=== PATIENT | male | born 1950 | race Caucasian/White ===

== ENCOUNTER 2021-07-22 16:47 | Emergency (ER) | payer MEDICARE ==
[2021-07-22 17:13] LABS: #Basophils 0.1 thou/uL (0.0-0.2); #Lymphocytes 0.4 thou/uL (1.20-3.40); #Monocytes 0.8 thou/uL (0.11-0.59); #Neutrophils 12.9 thou/uL (1.40-6.50); %Basophils 0.6 % (0.0-1.0); %Eosinophils 0.1 % (0.0-10.0); %Lymphocytes 3.1 % (21.0-51.0); %Monocytes 5.4 % (0.0-10.0); %Neutrophils 90.8 % (42.0-75.0); Hemoglobin 14.9 g/dL (14.0-18.0); Mean Corpuscular HGB CONC 30.8 g/dL (32.0-36.0); Mean Corpuscular Hemoglobin 29.1 pg (27.0-31.0); Mean Corpuscular Volume 94.6 fL (78.0-98.0); Mean Platelet Volume 5.9 fL (7.4-10.4); Platelet Count 393 thou/uL (130-400); RBC Distribution Width 13.2 % (11.5-14.5); Red Blood Cell (RBC) Count 5.11 mill/uL (4.70-6.10); White Blood Cell (WBC) Count 14.2 thou/uL (4.8-10.8)
[2021-07-22 17:31] LABS: ALT (SGPT) 26 U/L (8-55); AST (SGOT) 58 U/L (5-34); Albumin 4.5 g/dL (3.4-4.8); Alkaline Phosphatase 75 U/L (40-110); Anion Gap 23 mmol/L (10-20); BUN (Urea Nitrogen) 30 mg/dL (8.4-25.7); Bilirubin, Total 0.5 mg/dL (0.2-1.2); Calc. Creatinine Clearance 0 mL/min (70-130); Calcium 9.6 mg/dL (7.8-10.44); Carbon Dioxide 22 mmol/L (23-31); Chloride 104 mmol/L (98-107); Globulin 2.8 g/dL (2.4-3.5); Glucose 83 mg/dL (83-110); Potassium 5.3 mmol/L (3.5-5.1); Protein, Total 7.3 g/dL (5.8-8.1); Sodium 144 mmol/L (136-145)
[2021-07-22] MEDS ORDERED: Aspirin Chewable 81 MG TAB ONE (17:48)
[2021-07-22 18:00] LABS: CKMB 21.4 ng/mL (0-6.6)
[2021-07-22] MEDS ORDERED: Magnesium 2 GM/50 ML BAG (IN WATER) ONE (18:44)
== END 2021-07-22 19:55 | disposition short-term general hospital (02) ==
LOC: MADERS 16:47
DX: J44.1 Chronic obstructive pulmonary disease with (acute) exacerbation (principal); E78.00 Pure hypercholesterolemia, unspecified; I10 Essential (primary) hypertension; Z79.82 Long term (current) use of aspirin; Z79.899 Other long term (current) drug therapy; Z79.891 Long term (current) use of opiate analgesic
CPT/HCPCS: 71045; 80053; 82553; 83605; 83880; 84484; 85025; 93005; 94760; 96365; J3475; J7620